=== PATIENT | female | born 1935 | race Caucasian/White ===

== ENCOUNTER 2019-10-27 11:37 | Outpatient (CLI) | payer MEDICARE, OTHER, SELFPAY ==
--- NOTE | 2019-10-27 | XR_ITS ---
WS: [id number] Thoracic spine, 3 views, 10/27/2019 Clinical Data: THORACIC SPINE PAIN Comparison: None. Findings: No thoracic compression fractures are seen. There is an old compression fracture of the L1 vertebral body with loss of approximately 50% of the anterior and central vertebral body height. The disc heigh ts are normal. There is a levoscoliosis. Moderate osteoarthritic change of the all the thoracic vertebral bodies is seen. There is an orthoped ic anchor in one of the shoulders. XR/XR thoracic spine 3V* [id number] Impression: 1. Levoscoliosis with moderate osteoarthritis. 2. L1 compression fracture, old.
== END 2019-10-27 11:38 | disposition home or self-care (01) ==
LOC: RADOUTREAD 10-28 07:37
PROVIDERS: Visit Provider Internal Medicine
DX: Z76.89 Persons encountering health services in other specified circumstances (principal)

== ENCOUNTER 2019-10-27 15:44 | Outpatient (CLI) | payer MEDICARE, OTHER, SELFPAY | END 2019-10-27 15:45 | disposition home or self-care (01) | LOC: RADOUTREAD 15:50 | PROVIDERS: Visit Provider Internal Medicine | DX: Z76.89 Persons encountering health services in other specified circumstances (principal) ==

== ENCOUNTER 2019-11-03 12:42 | Outpatient (RCR) | payer MEDICARE, OTHER, SELFPAY | END 2019-11-20 23:59 | disposition home or self-care (01) | LOC: SPT 12:42 | PROVIDERS: PCP Internal Medicine; Referring Provider Internal Medicine; Visit Provider Internal Medicine | DX: M54.6 Pain in thoracic spine (principal) | CPT/HCPCS: 97110; 97161 ==

== ENCOUNTER 2019-11-21 06:00 | Outpatient (RCR) | payer MEDICARE, OTHER, SELFPAY | END 2019-12-13 23:00 | disposition home or self-care (01) | LOC: SPT 06:00 | PROVIDERS: PCP Internal Medicine; Referring Provider Internal Medicine; Visit Provider Internal Medicine | DX: M54.6 Pain in thoracic spine (principal) | CPT/HCPCS: 97110 ==

== ENCOUNTER 2019-12-08 09:54 | Emergency (ER) | payer MEDICARE, OTHER, SELFPAY ==
[2019-12-08 09:59] VITALS: BP 143/87; PULSE 73; RESP 16; TEMP 36.6; O2SAT 98; BMI 27.8
--- NOTE | 2019-12-08 10:08 | ED_ITS ---
Entered by [id number], acting as scribe for Mau Buckner DO Dec 08, 2019 09:54 HPI - Pediatric GI General: Chief Complaint: Abdominal Pain Stated Complaint: RIGHT SIDE PAIN Time Seen by Provider: 12/08/19 10:01 [facility] ED PFSH: Surgical History (Updated 12/08/19 @ 10:18 by Ifeoma Mackey) History of cholecystectomy Course Vital Signs: Vital signs: Vital Signs Temperature 97.8 F 12/08/19 09:59 Pulse Rate 64 12/08/19 12:00 Respiratory Rate 16 12/08/19 12:00 Blood Pressure 161/74 12/08/19 12:00 Pulse Oximetry 97 12/08/19 12:00 Medical Decision Making Lab Data: Labs: Lab Results 12/08/19 12/08/19 12/08/19 Range/Units 10:15 10:15 10:34 WBC 4.3 (4.0-10.0) 10^3/ uL RBC 4.37 (4.1-5.3) 10^6/u L Hgb 13.4 (11.5-15.3) g/dL Hct 41.8 (37.0-47.0) % MCV 95.7 (81-99) fL MCH 30.7 (28.0-34.0) pg MCHC 32.1 (30.0-36.0) g/dL RDW 12.7 (12.1-15.1) % Plt Count 214 (130-400) 10^3/c mm MPV 12.1 H (7.4-10.4) fL Neut % (Auto) 60.6 % Lymph % (Auto) 26.3 % [place] % (Auto) 12.2 % Eos % (Auto) 0.2 % Baso % (Auto) 0.5 % Neut # (Auto) 2.6 (1.8-7.7) 10^3/u L Lymph # (Auto) 1.1 (0.8-4.8) 10^3/u L [place] # (Auto) 0.5 (0.2-0.9) 10^3/u L Eos # (Auto) 0.0 (0.0-0.8) 10^3/u L Baso # (Auto) 0.0 (0.0-0.1) 10^3/u L Nucleated RBC % (a uto) 0 % Nucleated RBCs # 0.0 /100WBC Sodium 140 (136-145) mmol/L Potassium 3.9 (3.5-5.1) mmol/L Chloride 102 (98-107) mmol/L Carbon Dioxide 27 (22-29) mmol/L Anion Gap 14.9 (5-19) BUN 11 (8-23) mg/dL Creatinine 1.1 H (0.5-0.9) mg/dL Glucose 113 (65-115) mg/dL Calculated Osmolal ity 287 (285-295) mOsm/k g Lactate 1.5 (0.5-2.2) mmol/L Calcium 9.6 (8.5-10.5) mg/dL Total Bilirubin 0.6 (0.15-1.2) mg/dL AST 21 (0-32) U/L ALT 10 (0-33) U/L Alkaline Phosphata se 75 (35-105) IU/L Total Protein 7.8 (6.6-8.7) g/dL Albumin 3.7 (3.5-5.2) g/dL Globulin 4.1 (1.3-4.6) g/dL Lipase 29 (13-60) U/L Urine Color (Yellow) Urine Appearance (CLEAR) Urine pH (5-7) Ur Specific Gravit y (1.005-1.030) Urine Protein (Negative) Urine Glucose (UA) (Normal) Urine Ketones (Negative) Urine Blood (Negative) Urine Nitrate (Negative) Urine Bilirubin (NEGATIVE) Urine Urobilinogen (Negative) mg/dL Ur Leukocyte Elizabeth ase (Negative) 12/08/19 Range/Units 11:00 WBC (4.0-10.0) 10^3/ uL RBC (4.1-5.3) 10^6/u L Hgb (11.5-15.3) g/dL Hct (37.0-47.0) % MCV (81-99) fL MCH (28.0-34.0) pg MCHC (30.0-36.0) g/dL RDW (12.1-15.1) % Plt Count (130-400) 10^3/c mm MPV (7.4-10.4) fL Neut % (Auto) % Lymph % (Auto) % [place] % (Auto) % Eos % (Auto) % Baso % (Auto) % Neut # (Auto) (1.8-7.7) 10^3/u L Lymph # (Auto) (0.8-4.8) 10^3/u L [place] # (Auto) (0.2-0.9) 10^3/u L Eos # (Auto) (0.0-0.8) 10^3/u L Baso # (Auto) (0.0-0.1) 10^3/u L Nucleated RBC % (a uto) % Nucleated RBCs # /100WBC Sodium (136-145) mmol/L Potassium (3.5-5.1) mmol/L Chloride (98-107) mmol/L Carbon Dioxide (22-29) mmol/L Anion Gap (5-19) BUN (8-23) mg/dL Creatinine (0.5-0.9) mg/dL Glucose (65-115) mg/dL Calculated Osmolal ity (285-295) mOsm/k g Lactate (0.5-2.2) mmol/L Calcium (8.5-10.5) mg/dL Total Bilirubin (0.15-1.2) mg/dL AST (0-32) U/L ALT (0-33) U/L Alkaline Phosphata se (35-105) IU/L Total Protein (6.6-8.7) g/dL Albumin (3.5-5.2) g/dL Globulin (1.3-4.6) g/dL Lipase (13-60) U/L Urine Color Yellow (Yellow) Urine Appearance Clear (CLEAR) Urine pH 6.5 (5-7) Ur Specific Gravit y 1.010 (1.005-1.030) Urine Protein Neg (Negative) Urine Glucose (UA) Norm (Normal) Urine Ketones Negative (Negative) Urine Blood Neg (Negative) Urine Nitrate Negative (Negative) Urine Bilirubin Neg (NEGATIVE) Urine Urobilinogen Norm (Negative) mg/dL Ur Leukocyte Elizabeth ase Negative (Negative) Discharge Plan Discharge Patient Disposition: Home, Self-Care Clinical Impression: Abdominal pain Qualifiers: Abdominal location: right lower quadrant Qualified Code(s): R10.31 - Right lower quadrant pain Condition: Stable Prescriptions: New tramadol 50 mg tablet 25 mg PO Q6H PRN (Reason: pain) Qty: 14 RF: 0 No Action metoprolol succinate 50 mg tablet extended release 24 hr 50 mg PO DAILY RF: 0 Aspir-81 81 mg Tablet,Delayed Release (Dr/Ec) 81 mg PO DAILY RF: 0 simvastatin 40 mg tablet 40 mg PO DAILY RF: 0 levothyroxine 75 mcg tablet 75 mcg PO DAILY RF: 0 lorazepam 0.5 mg tablet 0.5 - 1 mg PO QID PRN (Reason: unknown) RF: 0 sertraline 25 mg tablet 25 mg PO BEDTIME RF: 0 omeprazole 20 mg capsule,delayed release(DR/EC) 20 mg PO DAILY RF: 0 Zestril 5 mg tablet 5 mg PO DAILY RF: 0 cranberry 500 mg Capsule 500 mg PO DAILY RF: 0 Calcium 500 2 tab PO DAILY RF: 0 black cohosh 1 tab PO DAILY RF: 0 magnesium 1 tab PO DAILY RF: 0 Referrals: José Luis Lacey DO [Primary Care Provider] - Patient Instructions: Cholecystitis (ED), Abdominal Pain (ED) Coding Level of Care Code ED Jet Ski Mechanic for Chg Fwaysha The documentation recorded by the scribmilka, [id number], accurately reflects the service I personally performed and the decisions made by Dudley orlando Donald P, DO Dec 08, 2019 09:54
--- NOTE | 2019-12-08 10:09 | W.ED.ABDPA2 ---
HPI - Abdominal Pain General: Chief Complaint: Abdominal Pain Stated Complaint: RIGHT SIDE PAIN Time Seen by Provider: 12/08/19 10:01 Source: patient and family Mode of arrival: ambulatory Limitations: no limitations History of Present Illness: HPI narrative: 83 yo female presents with RLQ pain. pt states this started a few days ago and she was concerned about her appendix. pt has had nausea and diarrhea. pt denies anyother symptoms at this time. pt states the pain is worsened but movement or walking. MD elicited complaint: abdominal pain Pertinent past history: none Onset (ago): day(s) (5 days) Location: RLQ Severity: moderate Quality: stabbing Radiation: none Migration to: no migration Exacerbating factors: nothing Relieving factors: nothing Associated Symptoms: Reports nausea; Denies chills and fever(s) Review of Systems General: Reports: 10 or more systems reviewed and unremarkable except in HPI and below Const: Denies: fever or chills GI: Reports: abdominal pain and nausea PFSH ED PFSH: Surgical History (Updated 12/08/19 @ 10:18 by Ifeoma Mackey) History of cholecystectomy Physical Exam Const: COMMON NORMALS: no apparent distress, average body habitus, oriented x3, no limitations, healthy appearing, alert and well nourished HENMT: COMMON NORMALS: normocephalic, head/scalp atraumatic, hearing grossly normal bilaterally, external ears normal, EAC's normal, TM's normal bilaterally, external nose normal, nasal mucous membranes and turbinates normal, moist oral mucous membranes, oropharynx normal, dentition normal and gingiva normal HEAD & SCALP: normocephalic and atraumatic NOSE: external nose normal and nasal mucous membranes and turbinates normal EXTERNAL EAR: Yes external ears normal EXTERNAL AUDITORY CANAL: EAC's normal TYMPANIC MEMBRANE: TM's normal bilaterally Eye: COMMON NORMALS: PERRL, EOMs intact bilaterally, conjunctivae normal, no scleral icterus, no papilledema, normal visual pineda by confrontation and fundi normal bilaterally CONJUNCTIVA: Yes conjunctivae normal PUPIL: Yes PERRL DIRECT OPHTHALMOSCOPY: Yes no papilledema and Yes fundi normal bilaterally Neck/C-Spine: COMMON NORMALS: full ROM, no lymphadenopathy, supple, no meningeal signs, no JVD, thyroid normal and no carotid bruits THYROID: thyroid normal Chest: COMMONS NORMALS: inspection of chest normal and palpation of chest normal Resp: COMMON NORMALS: normal respiratory effort, no retractions, no use of accessory muscles, clear to auscultation bilaterally and percussion normal AUSCULTATION: clear to auscultation bilaterally PERCUSSION: percussion normal Cardio: COMMON NORMALS: no JVD, regular rate, regular rhythm, S1 normal heart sound, S2 normal heart sound, no gallops, no clicks, no murmurs, no rub and peripheral pulses 2+ throughout RATE: regular rate RHYTHM: regular rhythm HEART SOUNDS: S1 normal and S2 normal PERIPHERAL PULSES: pulses 2+ throughout GI: PALPATION: Yes tender (RLQ) : COMMON NORMALS: Yes no CVA tenderness and Yes external appearance normal BLADDER/KIDNEY EXAM: Yes no CVA tenderness Back/Pelvis: COMMON NORMALS: no CVA tenderness, thoracic and lumbar spine normal to inspection, no thoracic nor lumbar tenderness, thoraco-lumbar ROM normal and straight leg raise negative bilaterally Extremity: COMMON NORMALS: normal to inspection, full ROM, normal capillary refill, no joint enlargement, no clubbing, cyanosis or edema, no calf tenderness and no pedal edema Neuro: COMMON NORMALS: oriented x3 SENSORIUM/ORIENTATION: Yes alert MENINGEAL SIGNS: Yes no meningeal signs Skin: COMMON NORMALS: no rashes or lesions noted, no wounds, skin turgor normal, no jaundice, no petechiae and no mottling GENERAL SKIN EXAM: no rashes or lesions noted and turgor normal Course Vital Signs: Vital signs: Vital Signs Temperature 97.8 F 12/08/19 09:59 Pulse Rate 70 12/08/19 10:21 Respiratory Rate 16 12/08/19 10:21 Blood Pressure 143/87 12/08/19 10:21 Pulse Oximetry 98 12/08/19 10:21 Coding Level of Care Code ED Transplant Worker for Chg Fwd Exam Comprehensive
[2019-12-08 10:21] VITALS: BP 143/87; PULSE 70; RESP 16; O2SAT 98
--- NOTE | 2019-12-08 10:28 | CT_ITS ---
WS: [id number] CT ABDOMEN PELVIS TECHNIQUE: Contrast-enhanced CT of the abdomen and pelvis with coronal and sagittal reformatted image s. CLINICAL INFORMATION: abd pain COMPARISON: CT August 22, 2008 DLP: 680.[address] scans at [facility] use at least one of these dose optimization techniques: automat ed exposure control; mA and/or kV adjustment per patient size (includes targeted exams where dose is matched to clinical indication); or iterative reconstruction. FINDINGS: Prior cholecystectomy. 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 This is progressed since 2007. No evidence of high-grade obstruction. Cholecystectomy clips. Normal portal ve in and splenic vein. Large and small bowel decompressed. No evidence of small or large bowel obstruct ion. Sigmoid diverticulosis. No evidence of acute diverticulitis. No evidence of acute appendicitis. Mild pancreatic atrophy. Normal caliber abdominal aorta. Aortic calcification. Mild renal cortical at rophy. No hydronephrosis. Tiny bilateral renal cysts. Cluster of noncalcified pulmonary nodules in th e right lower lobe the largest measuring 6 mm. A few additional small subcentimeter subpleural nodule s in the right lower lobe and left lower lobe. 2 small left lower lobe nodules measure 4 to 5 mm. Tiny fat-containing umbilical hernia. Lumbar scoliosis with chronic appearing compression with anteri or wedging at L1. Disc space narrowing worse at L1-L2 and L2-L3. Notified Mau Buckner DO at 12/08/2019 1:[address]/CT abdomen pelvis w con* [id number] IMPRESSION: 1. 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 This is progressed since 2007. 2. Prior cholecystectomy. 3. Small bilateral renal cysts. No hydronephrosis. 4. No evidence of acute appendicitis. 5. Small and large bowel are otherwise unremarkable. No evidence of small larg e bowel obstruction. 6. Sigmoid diverticulosis. No evidence of acute diverticulitis. 7. Small cluster of nodules in the right lower lobe the largest measuring 6 mm . Recommend 3-6 month follow-up
[2019-12-08] MEDS: sodium chloride 0.9% 1,000 ML 999 ML IV (10:46)
[2019-12-08 10:50] LABS: Basophils % 0.5 %; Eosinophils % 0.2 %; Hematocrit 41.8 % (37.0-47.0); Hemoglobin 13.4 g/dL (11.5-15.3); Lymphocytes # 1.1 10^3/uL (0.8-4.8); Lymphocytes % 26.3 %; Mean Corpuscular HGB Conc 32.1 g/dL (30.0-36.0); Mean Corpuscular Hemoglobin 30.7 pg (28.0-34.0); Mean Corpuscular Volume 95.7 fL (81-99); Mean Platelet Volume 12.1 fL (7.4-10.4); Monocytes # 0.5 10^3/uL (0.2-0.9); Monocytes % 12.2 %; Neutrophils # 2.6 10^3/uL (1.8-7.7); Neutrophils % 60.6 %; Nucleated Red Blood Cells % 0 %; Platelet Count 214 10^3/cmm (130-400); Red Blood Count 4.37 10^6/uL (4.1-5.3); Red Cell Distribution Width 12.7 % (12.1-15.1); White Blood Count 4.3 10^3/uL (4.0-10.0)
[2019-12-08 10:57] LABS: Alanine Aminotransferase 10 U/L (0-33); Albumin Level 3.7 g/dL (3.5-5.2); Alkaline Phosphatase 75 IU/L (35-105); Anion Gap 14.9 (5-19); Aspartate Amino Transferase 21 U/L (0-32); Blood Urea Nitrogen 11 mg/dL (8-23); Calcium 9.6 mg/dL (8.5-10.5); Carbon Dioxide 27 mmol/L (22-29); Chloride 102 mmol/L (98-107); Globulin 4.1 g/dL (1.3-4.6); Glucose 113 mg/dL (65-115); Lipase 29 U/L (13-60); Osmolality Calculated 287 mOsm/kg (285-295); Potassium 3.9 mmol/L (3.5-5.1); Sodium 140 mmol/L (136-145); Total Bilirubin 0.6 mg/dL (0.15-1.2); Total Protein 7.8 g/dL (6.6-8.7)
[2019-12-08 11:03] LABS: Lactate (Lactic Acid level) 1.5 mmol/L (0.5-2.2)
[2019-12-08 11:13] VITALS: BP 154/64; PULSE 66; RESP 16; O2SAT 98
[2019-12-08] MEDS: iodixanol 320 mg/mL 100mL Btl IV (11:40)
[2019-12-08 12:00] VITALS: BP 161/74; PULSE 64; RESP 16; O2SAT 97
[2019-12-08 12:13] LABS: Add Urine Microscopic? NO
[2019-12-08 12:23] LABS: Bilirubin Urine Neg (NEGATIVE); Blood Urine Neg (Negative); Glucose Urine UA Norm (Normal); Ketones Urine Negative (Negative); Leukocyte Esterase Urine Negative (Negative); Nitrate Urine Negative (Negative); Protein Urine Neg (Negative); Urine Appearance Clear (CLEAR); Urine Color Yellow (Yellow); Urobilinogen Urine Norm (Negative); pH Urine 6.5 (5-7)
[2019-12-08 13:25] VITALS: BP 153/82; PULSE 79; RESP 16; O2SAT 96
== END 2019-12-08 13:26 | disposition home or self-care (01) ==
PROVIDERS: Emergency Provider Family Medicine; PCP Internal Medicine
DX: R10.9 Unspecified abdominal pain (principal)
CPT/HCPCS: 12345; 36415; 74177; 80053; 81003; 83605; 83690; 85025; 87040; 96360; 99283; J7030; Q9967

== ENCOUNTER 2020-10-01 10:29 | Emergency (ER) | payer MEDICARE, OTHER, SELFPAY ==
[2020-10-01 10:34] VITALS: BP 156/91; PULSE 65; RESP 16; TEMP 36.9; O2SAT 98; BMI 26.4
[2020-10-01 10:47] VITALS: BP 156/91; PULSE 64; RESP 20; O2SAT 98
--- NOTE | 2020-10-01 10:47 | XRR_ITS ---
PROCEDURE INFORMATION: Exam: XR Lumbosacral Spine, 2 or 3 Views Exam date and time: 10/01/2020 10:48 AM Age: 84 years old Clinical indication: Low back pain; Additional info: Pain, acute TECHNIQUE: Imaging protocol: XR of the lumbosacral spine, 2 or 3 views. COMPARISON: CT abdomen pelvis w con* [id number] 12/08/2019 11:34 AM FINDINGS: Bones/joints: Osteopenia and chronic L1 compression fracture. Degenerative change and scoliosis. Intraperitoneal space: Status post cholecystectomy. Other: vascular calcification. XR/XR lumbar spine 2-3V* [id number] IMPRESSION: Osteopenia and chronic L1 compression fracture. Degenerative change and scoliosis.
--- NOTE | 2020-10-01 10:49 | W.ED.BACK ---
HPI - Back Pain/Injury General: Chief Complaint: Back Pain/Injury Stated Complaint: Back Pain Time Seen by Provider: 10/01/20 10:46 History of Present Illness: HPI Narrative: Patient is an 84-year-old female comes to the ED with lower back pain. Symptoms started yesterday. Patient denies any fall, trauma or lifting injury to cause lower back pain. Pain is located across both right and left side of the lower back but she says her left side is more painful. She rates the pain a 4 out of 10. She says any movement causes lower back pain. she has taken 500 mg of Tylenol and 400 mg of ibuprofen this morning to help with pain. Denies any fever, chills, dysuria or hematuria. Patient did state that she does get frequent UTIs. Associated symptoms: Deny abdominal pain, chills, dysuria, fatigue, fever(s), hematuria, nausea or vomiting Review of Systems Const: Denies: fever(s), chills or fatigue Eyes: Denies: change in vision or eye discomfort ENMT: Denies: throat pain, odynophagia, nasal discharge or nasal congestion Card: Denies: chest pain, palpitations, edema, swelling of feet/ankles, dyspnea on exertion or orthopnea Resp: Denies: dyspnea, productive cough or non-productive cough GI: Denies: abdominal pain, nausea, vomiting, diarrhea, constipation or hematochezia : Denies: flank pain, dysuria or hematuria Musc: Reports: back pain (Lumbar back pain); Denies: neck pain or extremity swelling Skin/Breast: Denies: rash or new lesions Neuro: Denies: headache(s), numbness in extremities or weakness in extremities PFS ED PFSH: Surgical History History of cholecystectomy Physical Exam Const: COMMON NORMALS: no acute distress, patient oriented x3 and alert GENERAL APPEARANCE: cooperative and comfortable HENMT: COMMON NORMALS: normocephalic HEAD & SCALP: normocephalic MOUTH: Normal oral and palatal mucosa present THROAT: posterior oropharynx normal and uvula midline Neck/C-Spine: COMMON NORMALS: supple GENERAL: Yes normal visual inspection Resp: COMMON NORMALS: normal respiratory effort, No retractions, No use of accessory muscles and clear to auscultation bilaterally AUSCULTATION: clear to auscultation bilaterally Cardio: COMMON NORMALS: regular rate, regular rhythm, S1 normal heart sound present, S2 normal heart sound present, No gallops present (Cardio), No clicks present (Cardio), No murmurs present (Cardio) and Peripheral pulses 2+ throughout RATE: regular rate RHYTHM: regular rhythm HEART SOUNDS: S1 normal heart sound present and S2 normal heart sound present PERIPHERAL PULSES: Peripheral pulses 2+ throughout GI: COMMON NORMALS: Normal to inspection, nondistended, normoactive bowel sounds present, Soft to palpation, non-tender and no masses PALPATION: Yes Soft to palpation : COMMON NORMALS: Yes no CVA tenderness BLADDER/KIDNEY EXAM: Yes no CVA tenderness Back/Pelvis: COMMON NORMALS: no CVA tenderness LUMBAR SPINE/LOWER BACK: Yes pain with ROM, No lumbar spinal tenderness and Yes paraspinal muscle tenderness Extremity: COMMON NORMALS: normal to inspection Neuro: COMMON NORMALS: patient oriented x3 and moves all extremities Skin: GENERAL SKIN EXAM: dry skin Course Vital Signs: Vital signs: Vital Signs Temperature 98.4 F 10/01/20 12:41 Pulse Rate 59 L 10/01/20 12:41 Respiratory Rate 18 10/01/20 12:41 Blood Pressure 142/80 10/01/20 12:41 Pulse Oximetry 97 10/01/20 12:41 MDM - Back Pain/Injury MDM Narrative: Medical decision making narrative: Patient is a 84-year-old female comes to the ED with lower back pain that is nontraumatic. Denies any accident or injury. X-ray of lumbar spine showed chronic L1 compression fracture. Patient was put in a TLSO back brace and discharged home. Her urine also had some signs of UTI so I sent her home on an antibiotic as well. Patient was told to follow-up with her PCP in 5 days for reevaluation. She was told to rest and limit her activity until seen by . Patient understood and agreed with plan. Lab Data: Labs: Lab Results 10/01/20 Range/Units 11:00 Urine Color Yellow (Yellow) Urine Appearance Sl hazy (CLEAR) Urine pH 5 (5-7) Ur Specific Gravit y 1.015 (1.005-1.030) Urine Protein Neg (Negative) Urine Glucose (UA) Norm (Normal) Urine Ketones Negative (Negative) Urine Blood Neg (Negative) Urine Nitrate Negative (Negative) Urine Bilirubin Neg (Negative) Urine Urobilinogen Norm (Negative) mg/dL Ur Leukocyte Elizabeth ase 2+ H (Negative) Urine RBC None (0-2) /hpf Urine WBC 15-25 H (0-5) /hpf Ur Squamous Epith Cells 5-10 H (0-5) /hpf Amorphous Sediment Not Reportable Urine Bacteria 2+ H (NONE) /hpf Urine Mucus Trace /hpf Imaging Data^: Xray Ortho: Attestation: I personally reviewed and interpreted this imaging study as follows: Radiologist's impression: [address] [address] XRay Report Signed Patient: Rosanne Johansen Unit #: [id number] : 1935 Age/Sex: 84 / F ADM Date: 10/01/20 Loc: ER Room/Bed: Attending Dr: Ordering Provider/Ordering MD: Lizz Crow MD Date of Service: 10/01/20 Procedure(s): XR lumbar spine 2-3V* [id number] Accession Number(s): [id number] Report Number: [id number] PROCEDURE INFORMATION: Exam: XR Lumbosacral Spine, 2 or 3 Views Exam date and time: 10/01/2020 10:48 AM Age: 84 years old Clinical indication: Low back pain; Additional info: Pain, acute TECHNIQUE: Imaging protocol: XR of the lumbosacral spine, 2 or 3 views. COMPARISON: CT abdomen pelvis w con* [id number] 12/08/2019 11:34 AM FINDINGS: Bones/joints: Osteopenia and chronic L1 compression fracture. Degenerative change and scoliosis. Intraperitoneal space: Status post cholecystectomy. Other: vascular calcification. XR/XR lumbar spine 2-3V* [id number] IMPRESSION: Osteopenia and chronic L1 compression fracture. Degenerative change and scoliosis. Dictated By: Hebert Prince MD Signed By: Hebert Prince MD Signed Date/Time: 10/01/20 1158 DD/ 1157 Discharge Plan Discharge Patient Disposition: Home Clinical Impression: Compression fracture of lumbar spine, non-traumatic Qualifiers: Encounter type: initial encounter Lumbar vertebra fracture level: L1 Qualified Code(s): M48.56XA - Collapsed vertebra, not elsewhere classified, lumbar region, initial encounter for fracture DJD (degenerative joint disease), lumbar Qualifiers: Spinal osteoarthritis complication: without myelopathy or radiculopathy Qualified Code(s): M47.816 - Spondylosis without myelopathy or radiculopathy, lumbar region UTI (urinary tract infection) Qualifiers: Urinary tract infection type: acute cystitis Hematuria presence: with hematuria Qualified Code(s): N30.01 - Acute cystitis with hematuria Condition: Stable Prescriptions: New Robaxin-750 750 mg tablet 750 mg PO Q8H Qty: 21 RF: 0 ibuprofen 600 mg tablet 600 mg PO Q8H PRN (Reason: pain) Qty: 12 RF: 0 ciprofloxacin HCl 250 mg tablet 250 mg PO BID 5 Days Qty: 10 RF: 0 No Action metoprolol succinate 50 mg tablet extended release 24 hr 50 mg PO DAILY RF: 0 Aspir-81 81 mg Tablet,Delayed Release (Dr/Ec) 81 mg PO DAILY RF: 0 simvastatin 40 mg tablet 40 mg PO DAILY RF: 0 levothyroxine 75 mcg tablet 75 mcg PO DAILY RF: 0 lorazepam 0.5 mg tablet 0.5 - 1 mg PO QID PRN (Reason: unknown) RF: 0 sertraline 25 mg tablet 25 mg PO BEDTIME RF: 0 omeprazole 20 mg capsule,delayed release(DR/EC) 20 mg PO DAILY RF: 0 Zestril 5 mg tablet 5 mg PO DAILY RF: 0 cranberry 500 mg Capsule 500 mg PO DAILY RF: 0 Calcium 500 2 tab PO DAILY RF: 0 black cohosh 1 tab PO DAILY RF: 0 magnesium 1 tab PO DAILY RF: 0 tramadol 50 mg tablet 25 mg PO Q6H PRN (Reason: pain) Qty: 14 RF: 0 Discharge Orders: Discharge ED (Routine); Ordered 10/01/20 Ordered By: David Glass Referrals: José Luis Lacey DO [Primary Care Provider] - Discharge Diet: Regular Discharge Activity: Limit activity as instructed Patient Instructions: Osteoarthritis (ED), Back Pain (ED) Activity Restrictions/Additional Instructions: Follow-up with medical provider as directed by the end of the week. Sending you home with a TLSO back brace for you to wear. Take medications as prescribed. Make sure to take the methocarbamol which is a muscle relaxer at night before bed because it can cause some drowsiness side effects. You can also add in taking some Tylenol in between doses of ibuprofen as needed for pain. Heat or cold pack on back to help with symptoms. Bed rest for the next couple days. return to the ER or your medical provider if condition worsens. Please read and understand discharge instructions. If any questions, please ask. Coding Level of Care Code ED Wire Stitcher Operator for Tuan Cooper Exam Comprehensive
[2020-10-01 10:57] VITALS: BP 149/86; PULSE 103; RESP 20; O2SAT 96
[2020-10-01] MEDS: ketorolac 30 mg/mL INJ IM (11:14)
[2020-10-01] MEDS: orphenadrine 30 mg/mL Inj 2 mL 60 MG IM (11:14)
[2020-10-01 12:21] LABS: Add Urine Microscopic? YES; Bilirubin Urine Neg (Negative); Blood Urine Neg (Negative); Glucose Urine UA Norm (Normal); Ketones Urine Negative (Negative); Leukocyte Esterase Urine 2+ (Negative); Nitrate Urine Negative (Negative); Protein Urine Neg (Negative); Specific Gravity, Urine 1.015 (1.005-1.030); Urine Appearance SL Hazy (CLEAR); Urine Color Yellow (Yellow); Urobilinogen Urine Norm (Negative); pH Urine 5 (5-7)
[2020-10-01 12:22] LABS: Add Urine Culture? Yes; Bacteria Urine 2+ /hpf; Mucus Urine TRACE /hpf; WBC Urine 15-25 /hpf (0-5)
[2020-10-01 12:41] VITALS: BP 142/80; PULSE 59; RESP 18; TEMP 36.9; O2SAT 97
== END 2020-10-01 12:44 | disposition home or self-care (01) ==
PROVIDERS: Family Medicine; Emergency Provider Physician Assistant; PCP Internal Medicine
DX: M48.56XA Collapsed vertebra, not elsewhere classified, lumbar region, initial encounter for fracture (principal); M47.816 Spondylosis without myelopathy or radiculopathy, lumbar region; N30.01 Acute cystitis with hematuria; Z79.82 Long term (current) use of aspirin
CPT/HCPCS: 12345; 72100; 81001; 87086; 96372; 97760; 99282; 99283; J1885; J2360; L0456

== ENCOUNTER 2021-03-14 12:24 | Outpatient (RCR) | payer MEDICARE, OTHER, SELFPAY | END 2021-03-21 23:59 | disposition home or self-care (01) | LOC: SPT 12:24 | PROVIDERS: PCP Internal Medicine; Referring Provider Internal Medicine; Visit Provider Internal Medicine | DX: M54.9 Dorsalgia, unspecified (principal); G89.29 Other chronic pain | CPT/HCPCS: 97110; 97161 ==

== ENCOUNTER 2021-03-22 06:00 | Outpatient (RCR) | payer MEDICARE, OTHER, SELFPAY | END 2021-04-21 23:59 | disposition home or self-care (01) | LOC: SPT 06:00 | PROVIDERS: PCP Internal Medicine; Referring Provider Internal Medicine; Visit Provider Internal Medicine | DX: M54.9 Dorsalgia, unspecified (principal); G89.29 Other chronic pain | CPT/HCPCS: 97110 ==

== ENCOUNTER 2021-04-22 06:00 | Outpatient (RCR) | payer MEDICARE, OTHER, SELFPAY | END 2021-05-22 23:59 | disposition home or self-care (01) | LOC: SPT 06:00 | PROVIDERS: PCP Internal Medicine; Referring Provider Internal Medicine; Visit Provider Internal Medicine | DX: M54.9 Dorsalgia, unspecified (principal); G89.29 Other chronic pain | CPT/HCPCS: 97110 ==

== ENCOUNTER 2021-05-23 06:00 | Outpatient (RCR) | payer MEDICARE, OTHER, SELFPAY | END 2021-06-21 23:59 | disposition home or self-care (01) | LOC: SPT 06:00 | PROVIDERS: PCP Internal Medicine; Referring Provider Internal Medicine; Visit Provider Internal Medicine | DX: M54.9 Dorsalgia, unspecified (principal) | CPT/HCPCS: 97110 ==

== ENCOUNTER 2024-05-31 13:22 | Outpatient (RCR) | payer MEDICARE, SELFPAY | END 2024-06-21 23:59 | disposition home or self-care (01) | LOC: SPT 13:22 | PROVIDERS: Visit Provider Student in an Organized Health Care Education/Training Program | DX: Z47.1 Aftercare following joint replacement surgery (principal); Z96.652 Presence of left artificial knee joint | CPT/HCPCS: 97110; 97161 ==

== ENCOUNTER 2024-06-22 06:00 | Outpatient (RCR) | payer MEDICARE, SELFPAY | END 2024-07-22 23:59 | disposition home or self-care (01) | LOC: SPT 06:00 | PROVIDERS: PCP Internal Medicine; Visit Provider Student in an Organized Health Care Education/Training Program | DX: Z47.1 Aftercare following joint replacement surgery (principal); Z96.652 Presence of left artificial knee joint | CPT/HCPCS: 97110 ==

== ENCOUNTER 2024-07-03 15:37 | Emergency (ER) | payer MEDICARE, SELFPAY ==
--- NOTE | 2024-07-03 15:38 | ECG_ITS ---
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 Measurements Intervals [place] Rate: 73 P: 48 [place]: 158 QRS: 42 QRSD: 67 T: 65 QT: 383 QTc: 424 Interpretive Statements SINUS RHYTHM INTERPRETATION BASED ON A DEFAULT AGE OF 40 YEARS No previous ECG available for comparison Electronically Signed On 07-05-2024 14:12:30 CDT by Jake Elise M.D. [email or web address]
[2024-07-03 15:44] VITALS: BP 150/76; PULSE 76; RESP 17; TEMP 36.8; O2SAT 99; BMI 25.4
[2024-07-03 19:18] LABS: Basophils % 0.5 %; Eosinophils # 0.1 10^3/uL (0.0-0.8); Eosinophils % 1.2 %; Hematocrit 39.5 % (36-47); Lymphocytes # 1.7 10^3/uL (0.8-4.8); Lymphocytes % 28.8 %; Mean Corpuscular HGB Conc 31.4 g/dL (30-55); Mean Corpuscular Hemoglobin 31.8 pg (27-33); Mean Corpuscular Volume 101.3 fl (85-98); Mean Platelet Volume 10.5 fL (7.4-10.4); Monocytes # 0.6 10^3/uL (0.2-0.9); Monocytes % 10.5 %; Neutrophils # 3.49 10^3/uL (1.8-7.7); Neutrophils % 58.8 %; Nucleated Red Blood Cells % 0 %; Platelet Count 258 10^3/cmm (157-399); Red Cell Distribution Width 13.7 % (12.1-15.1); White Blood Count 5.93 10^3/uL (3.29-11.43)
[2024-07-03 19:34] LABS: Alanine Aminotransferase 6 U/L (0-33); Albumin Level 4.1 g/dL (3.5-5.2); Alkaline Phosphatase 91 U/L (35-105); Anion Gap 16.6 (5-19); Aspartate Amino Transferase 17 U/L (0-32); Blood Urea Nitrogen 19 mg/dL (8-23); Calcium 9.3 mg/dL (8.5-10.5); Carbon Dioxide 26 mmol/L (22-29); Chloride 101 mmol/L (98-107); Creatinine Clr Calc Pharmacy 30.8168; Globulin 3.7 g/dL (1.3-4.6); Glucose 92 mg/dL (65-115); Osmolality Calculated 290 mOsm/kg (285-295); Potassium 4.6 mmol/L (3.5-5.1); Sodium 139 mmol/L (136-145); Total Bilirubin 0.4 mg/dL (0.15-1.2); Total Protein 7.8 g/dL (6.6-8.7)
[2024-07-04 01:08] VITALS: BP 169/89; PULSE 70; RESP 16; O2SAT 96
[2024-07-04 01:48] VITALS: BP 134/63; PULSE 72; RESP 16; O2SAT 98
--- NOTE | 2024-07-04 01:52 | CTR_ITS ---
PROCEDURE INFORMATION: Exam: CT Head Without Contrast Exam date and time: 07/04/2024 2:23 AM Age: 88 years old Clinical indication: Pain; Visual disturbance; Headache; Patient HX: BAUTISTA with blurred vision; Additional info: Headache, blurry vision TECHNIQUE: Imaging protocol: Computed tomography of the head without contrast. Radiation optimization: All CT scans at this facility use at least one of these dose optimization techniques: automated exposure control; mA and/or kV adjustment per patient size (includes targeted exams where dose is matched to clinical indication); or iterative reconstruction. COMPARISON: No relevant prior studies available. RADIATION DOSE METRICS: Total DLP (mGy-cm): 947.08 FINDINGS: Brain: There is prominence of the subarachnoid spaces compatible with atrophy. There is small-vessel ischemic change within the periventricular white matter. No acute stroke or hemorrhage is appreciated. Cerebral ventricles: No ventriculomegaly. Paranasal sinuses: Visualized sinuses are unremarkable. No fluid levels. Mastoid air cells: Visualized mastoid air cells are well aerated. Bones: Unremarkable. No acute fracture. Soft tissues: Unremarkable. CT/CT head wo con* [id number] IMPRESSION: 1. Atrophy with small-vessel ischemic change.
[2024-07-04 04:00] VITALS: BP 164/75; PULSE 65; O2SAT 97
--- NOTE | 2024-07-04 06:05 | W.ED.HA ---
HPI - Headache General: Chief Complaint: Headache Stated Complaint: weakness/migraine Time Seen by Provider: 07/04/24 01:40 History of Present Illness: 88-year-old female with a history of migraine headache.She presents with several hours of diffuse vision blurring, mild to moderate headache, nausea, generalized weakness. No language problems, no focal weakness. She did have a brief period of tongue numbness. Symptoms are all but resolved now. She has a mild headache left. Related Data Home Medications Medication Instructions Recorded Confirmed Calcium 500 2 tab PO DAILY 12/08/19 12/08/19 aspirin 81 mg tablet,delayed 81 mg PO DAILY 12/08/19 12/08/19 release (Aspir-) black cohosh 1 tab PO DAILY 12/08/19 12/08/19 cranberry 500 mg capsule 500 mg PO DAILY 12/08/19 12/08/19 levothyroxine 75 mcg tablet 75 mcg PO DAILY 12/08/19 12/08/19 lisinopril 5 mg tablet (Zestril) 5 mg PO DAILY 12/08/19 12/08/19 lorazepam 0.5 mg tablet 0.5 - 1 mg PO QID PRN unknown 12/08/19 12/08/19 magnesium 1 tab PO DAILY 12/08/19 12/08/19 metoprolol succinate 50 mg 50 mg PO DAILY 12/08/19 12/08/19 tablet,extended release 24 hr omeprazole 20 mg capsule,delayed 20 mg PO DAILY 12/08/19 12/08/19 release sertraline 25 mg tablet 25 mg PO BEDTIME 12/08/19 12/08/19 simvastatin 40 mg tablet 40 mg PO DAILY 12/08/19 12/08/19 Previous Rx's Medication Instructions Recorded tramadol 50 mg tablet 25 mg (1/2 x 50 mg) PO Q6H PRN 12/08/19 pain #14 tabs ibuprofen 600 mg tablet 600 mg PO Q8H PRN pain #12 tabs 10/01/20 methocarbamol 750 mg tablet 750 mg PO Q8H #21 tabs 10/01/20 (Robaxin-750) sumatriptan succinate 50 mg tablet See Rx Instructions PO .COMPLEX 07/04/24 (Imitrex) #10 tabs Allergies Allergy/AdvReac Type Severity Reaction Status Date / Time Sulfa (Sulfonamide Allergy ALGY-Redness Verified 07/03/24 15:51 Antibiotics) of Skin sulfamethoxazole Allergy ALGY-Hives Verified 07/03/24 15:51 [From Bactrim] trimethoprim [From Bactrim] Allergy ALGY-Hives Verified 07/03/24 15:51 PFSH ED PFSH: Surgical History History of cholecystectomy Physical Exam Const: COMMON NORMALS: no acute distress GENERAL APPEARANCE: cooperative; not ill appearing and not frail appearing HENMT: COMMON NORMALS: normocephalic, atraumatic and Normal external nose present HEAD & SCALP: normocephalic and atraumatic FACE & SINUS: normal facial exam and face symmetric NOSE: Normal external nose present Eye: COMMON NORMALS: Equal, round and reactive pupils present and EOMs intact bilaterally PUPIL: Yes Equal, round and reactive pupils present Neck/C-Spine: GENERAL: Yes trachea midline Chest: CHEST: Yes Symmetrical chest wall rise Resp: COMMON NORMALS: normal respiratory effort, No retractions, No use of accessory muscles and clear to auscultation bilaterally AUSCULTATION: clear to auscultation bilaterally Cardio: COMMON NORMALS: regular rate and regular rhythm RATE: regular rate RHYTHM: regular rhythm GI: COMMON NORMALS: Normal to inspection, nondistended, normoactive bowel sounds present Extremity: COMMON NORMALS: no pedal edema Neuro: ELAYNE COMA SCALE: document GCS findings [place] coma scale eye opening: Spontaneous [place] coma scale verbal response: Orientated [place] coma scale motor response: Obey commands Elayne coma scale total score: 15 SENSORY EXAM: Yes extremities (intact) Psych: COMMON NORMALS: speech normal SPEECH: Yes normal speech Skin: COMMON NORMALS: no rashes or lesions noted GENERAL SKIN EXAM: no rashes or lesions noted Course Vital Signs: Vital signs: Vital Signs Temperature 98.3 F 07/03/24 15:44 Pulse Rate 70 07/04/24 06:21 Respiratory Rate 16 07/04/24 01:48 Blood Pressure 156/85 07/04/24 06:21 Pulse Oximetry 97 07/04/24 06:21 Oxygen Delivery Me thod Room Air 07/04/24 04:00 MDM - Headache Medical Decision Making Laboratories grossly not remarkable. Head CT is negative for acute changes. Symptoms are improved. She will be allowed home. She wishes to home.She was encouraged to follow up, as advanced imaging such as MRI may be needed if these continue. Her story and history do fit loosely with atypical migraine. Lab Data 07/03/24 19:04 07/03/24 19:[address] 07/04/24 01:52 IMPRESSION: 1. Atrophy with small-vessel ischemic change. Laboratory Results WBC 5.93 10^3/uL (3.29-11.43) 07/03/24 19:04 RBC 3.90 10^6/uL (3.85-5.65) 07/03/24 19:04 Hgb 12.40 g/dL (11.27-16.99) 07/03/24 19:04 Hct 39.5 % (36-47) 07/03/24 19: MCV 101.3 fl (85-98) H 07/03/24 19:04 MCH 31.8 pg (27-33) 07/03/24 19: MCHC 31.4 g/dL (30-55) 07/03/24 19:04 RDW 13.7 % (12.1-15.1) 07/03/24 19:04 Plt Count 258 10^3/cmm (157-399) 07/03/24 19:04 MPV 10.5 fL (7.4-10.4) H 07/03/24 19: Neut % (Auto) 58.8 % 07/03/24 19: Lymph % (Auto) 28.8 % 07/03/24 19:04 Terrell % (Auto) 10.5 % 07/03/24 19: Eos % (Auto) 1.2 % 07/03/24 19:04 Baso % (Auto) 0.5 % 07/03/24 19:04 Neut # (Auto) 3.49 10^3/uL (1.8-7.7) 07/03/24 19:04 Lymph # (Auto) 1.7 10^3/uL (0.8-4.8) 07/03/24 19:04 Terrell # (Auto) 0.6 10^3/uL (0.2-0.9) 07/03/24 19:04 Eos # (Auto) 0.1 10^3/uL (0.0-0.8) 07/03/24 19:04 Baso # (Auto) 0.0 10^3/uL (0.0-0.1) 07/03/24 19:04 Nucleated RBC % (auto) 0 % 07/03/24 19:04 Nucleated RBCs # 0.0 /100WBC 07/03/24 19:04 Sodium 139 mmol/L (136-145) 07/03/24 19:04 Potassium 4.6 mmol/L (3.5-5.1) 07/03/24 19:04 Chloride 101 mmol/L (98-107) 07/03/24 19:04 Carbon Dioxide 26 mmol/L (22-29) 07/03/24 19:04 Anion Gap 16.6 (5-19) 07/03/24 19:04 BUN 19 mg/dL (8-23) 07/03/24 19:04 Creatinine 1.1 mg/dL (0.5-0.9) H 07/03/24 19:04 GFR Calculation Not Reportable 07/03/24 19:04 Glucose 92 mg/dL (65-115) 07/03/24 19:04 Calculated Osmolality 290 mOsm/kg (285-295) 07/03/24 19:04 Calcium 9.3 mg/dL (8.5-10.5) 07/03/24 19:04 Total Bilirubin 0.4 mg/dL (0.15-1.2) 07/03/24 19:04 AST 17 U/L (0-32) 07/03/24 19:04 ALT 6 U/L (0-33) 07/03/24 19:04 Alkaline Phosphatase 91 U/L (35-105) 07/03/24 19:04 Total Protein 7.8 g/dL (6.6-8.7) 07/03/24 19:04 Albumin 4.1 g/dL (3.5-5.2) 07/03/24 19:04 Globulin 3.7 g/dL (1.3-4.6) 07/03/24 19:04 All radiology interpretation(s) finalized by discharge Discharge Plan Discharge Patient Disposition: Home Clinical Impression: Atypical migraine Condition: Stable Prescriptions: New sumatriptan succinate [Imitrex] 50 mg tablet See Rx Instructions .ROUTE .COMPLEX Qty: 10 0RF Rx Instructions: take 1 tab at onset of headache; if no relief may repeat 1 tab after at least 2 hrs; max = 4 tabs/24 hr No Action Robaxin-750 750 mg tablet 750 mg PO Q8H Qty: 21 0RF ibuprofen 600 mg tablet 600 mg PO Q8H PRN (Reason: pain) Qty: 12 0RF metoprolol succinate 50 mg tablet extended release 24 hr 50 mg PO DAILY Aspir-81 81 mg Tablet,Delayed Release (Dr/Ec) 81 mg PO DAILY simvastatin 40 mg tablet 40 mg PO DAILY levothyroxine 75 mcg tablet 75 mcg PO DAILY lorazepam 0.5 mg tablet 0.5 - 1 mg PO QID PRN (Reason: unknown) Rx Instructions: pt states she thinks this is the pill she stop taking-pt states she thought it was making her stomach hurt sertraline 25 mg tablet 25 mg PO BEDTIME Rx Instructions: pt states she takes the tiny green pill-formerly [facility]/judy states this should be the tiny green pill they fill for her omeprazole 20 mg capsule,delayed release(DR/EC) 20 mg PO DAILY Zestril 5 mg tablet 5 mg PO DAILY cranberry 500 mg Capsule 500 mg PO DAILY Calcium 500 2 tab PO DAILY black cohosh 1 tab PO DAILY magnesium 1 tab PO DAILY tramadol 50 mg tablet 25 mg PO Q6H PRN (Reason: pain) Qty: 14 0RF Discharge Orders: Discharge ED (Routine); Ordered 07/04/24 Ordered By: Joon Vivar Referrals: José Luis Lacey DO [Primary Care Provider] - 1-3 days Patient Instructions: Migraine Headache (ED), Opioid Safety, Pain Management Activity Restrictions/Additional Instructions: Return for worsening headache, problems with speech or language, focal weakness to 1 side, significant dizziness, other concerning symptoms. See your doctor next week. Coding Level of Care Code ED [employer] for [facility] NIH stroke score NIHSS Level Of Consciousness - 1a: 0 Level Of Consciousness Questions - 1b: Both Correct Level Of Consciousness Commands - 1c: Both Correct Best Gaze - 2: Normal Visual Morin - 3: No Visual Loss Facial Palsy - 4: Normal Motor Arm Right - 5: No Drift Motor Arm Left - 5: No Drift Motor Leg Right - 6: No Drift Motor Leg Left - 6: No Drift Limb Ataxia - 7: Absent Sensory - 8: Normal Best Language - 9: No Aphasia Dysarthia - 10: Normal Extinction And Inattention - 11: 0 Score Total Score: 0
[2024-07-04 06:21] VITALS: BP 156/85; PULSE 70; O2SAT 97
== END 2024-07-04 06:22 | disposition home or self-care (01) ==
PROVIDERS: Emergency Provider Emergency Medicine; PCP Internal Medicine
DX: G43.809 Other migraine, not intractable, without status migrainosus (principal); Z79.82 Long term (current) use of aspirin
CPT/HCPCS: 36415; 70450; 80053; 85025; 93005; 99284

== ENCOUNTER 2025-07-29 12:43 | Outpatient (CLI) | payer MEDICARE, SELFPAY ==
--- NOTE | 2025-07-29 12:48 | XR_ITS ---
WS: [id number] SCREENING DEXA SCAN [employer] CLINICAL INFORMATION: OSTEOPOROSIS COMPARISON: 2018 FINDINGS: The L1-L4 bone mineral density measures 1.413 g/cm2. This corresponds to a T score score of 1.9 and Z score of 4.0. Left femoral neck bone mineral density measures 0.742 g/cm2. This corresponds to a T score of -2.1 and Z score of 0.4. Right femoral neck bone mineral density measures 0.777 g/cm2. This corresponds to a T score -1.8of and Z score of 0.7. Mean femoral neck bone mineral density measures 0.759 g/cm2. This corresponds to a T score of -2.0 and Z score of 0.5. XR/XR DEXA axial skeleton* [id number] IMPRESSION: Normal bone mineralization lumbar spine. Osteopenia femoral necks Patient's FRAX calculated 10 year probability for major osteoporotic fracture i s 22.5% and osteoporotic hip fracture is 7.3%. Bone density lumbar spine increased 4.4% Bone density femoral necks increased 0.7%
== END 2025-07-29 12:44 | disposition home or self-care (01) ==
LOC: RAD 12:44
PROVIDERS: PCP Internal Medicine; Visit Provider Electrodiagnostic Medicine
DX: Z13.820 Encounter for screening for osteoporosis (principal); M81.0 Age-related osteoporosis without current pathological fracture; M85.89 Other specified disorders of bone density and structure, multiple sites
CPT/HCPCS: 77080